=== PATIENT | male | born 1955 | race Caucasian/White ===

== ENCOUNTER → 2020-02-11 10:23 | Outpatient (CLI) | payer MEDICARE ==
[2011-08-02 12:32] VITALS: BMI 36.8
--- NOTE | 2020-02-14 15:00 | EC ---
PATIENT:LUCILLE MCCARTNEY DATE OF SERVICE: 02/11/20 SEX: M MEDICAL RECORD: [id number] DATE OF : [birth year] LOCATION:D[facility] AGE OF PATIENT: 64 ADMISSION DATE: 02/11/20 REFERRING PHYSICIAN: INTERPRETING PHYSICIAN: BRIDGER ELIZONDO MD ECHOCARDIOGRAM REPORT ECHO CHARGES 4 ECHO COMPLETE Date: 02/11/20 CLINICAL DIAGNOSIS: CP ECHOCARDIOGRAPHIC MEASUREMENTS (adult normal given) AC root (d.<3.7cm) 3.3 cm LV Septum d (<1.2 cm> 1.0 cm Valve Excursion 2.0 cm LV Septum (systole) 1.1 cm Left Atria (s.<4.0cm> 4.1 cm LVPW d(<1.2cm) 0.9 cm RV (d.<2.3cm) 2.8 cm LVPW (sytole) cm LV diastole(<5.6CM) 6.5 cm MV E-F(>70mm/sec) cm LV systole 5.1 cm LVOT Diameter 2.1 cm MV exc.(>10mm) cm Est.ejection fraction (50-75%) % DOPPLER: LVIT cm/sec A 87 cm/sec E 86 cm/sec LA cm/sec RVSP 21.3 mmHg LVOT 105 cm/sec AOP1/2T m/s Asc. Ao 133 cm/sec RVOT 88 cm/sec RA cm/sec PA 92 cm/sec AV Gradient Peak 7.0 mmHg AV Mean 3.6 mmHg AV Area 2.5 cm MV Gradient Peak 6.0 mmHg MV Mean 2.4 mmHg MV Area cm COMMENTS: Court Interpreter: [facility] Policy Writer: 3 Dr. Gupta TAPE# PACS Pericardial Effusion N DATE OF SERVICE: Adequate 2D, color flow imaging, spectral Doppler, and M-Mode. No LVH. LV internal dimension is normal. Wall motion is normal. EF is greater than or equal to 55%. Aortic valve is tricuspid. No evidence of stenosis by Doppler interrogation. Left atrium is minimally dilated at 4.1 cm. Mitral valve shows no prolapse. Trace MR. Right-sided chambers are grossly normal. Trace TR. ECHOCARDIOGRAM REPORT [id number] LUCILLE MCCARTNEY TRANSINT:[id number] Voice Confirmation ID: [id number] DOCUMENT ID: [id number] BRIDGER ELIZONDO MD at 1500 CC: [id number] DICTATION DATE: 02/14/2059 SLAT GRADER: 02/14/20 1223 DEP CLI 02/11/20 [id number] [place] [address]
== END | disposition home or self-care (01) ==
LOC: D.ECHO 10:23 → D.RT 14:00
PROVIDERS: ATTEND Internal Medicine Cardiovascular Disease
DX: R91.8 Other nonspecific abnormal finding of lung field (principal); R07.9 Chest pain, unspecified